=== PATIENT | male | born 1970 | race African-American/Black ===

== ENCOUNTER 2022-05-16 12:51 | Emergency (ER) | payer MEDICAID ==
[2022-05-16] MEDS ORDERED: Alum Hydroxide/Mag Hydroxide 15 ML, Lidocaine 2% 15 ML PO ONE ×2 (13:11)
[2022-05-16 13:41] LABS: ESTIMATED GFR 45 mL/min (>60)
[2022-05-16] MEDS ORDERED: Acetaminophen 500 MG Tab PO ONE (14:07)
[2022-05-16] MEDS ORDERED: Famotidine 20 MG Tab PO ONE (14:08)
[2022-05-16] MEDS ORDERED: NS + KCl 20mEq/L 1,000 ML IV SCH (14:15)
== END 2022-05-16 14:29 | disposition home or self-care (01) ==
LOC: FB.ED 12:51
DX: R10.13 Epigastric pain (principal); E87.6 Hypokalemia; I45.10 Unspecified right bundle-branch block; Z79.01 Long term (current) use of anticoagulants; Z79.899 Other long term (current) drug therapy
CPT/HCPCS: 36415; 80053; 83690; 84484; 85027; 86140; 93005; 99285; A9270

== ENCOUNTER 2022-06-04 14:00 | Emergency (ER) | payer MEDICAID ==
[2022-06-04] MEDS ORDERED: Furosemide 40 MG/4 ML VIAL IVPUSH ONE (14:27)
[2022-06-04] MEDS ORDERED: Metolazone 2.5 MG Tab PO ONE (14:27)
[2022-06-04] MEDS ORDERED: Sodium Chloride 0.9% 10 ML Syringe FLUSH PRN (14:36)
[2022-06-04 14:56] LABS: ESTIMATED GFR 49 mL/min (>60)
== END 2022-06-04 15:30 | disposition home or self-care (01) ==
LOC: FB.ED 14:00
DX: I13.0 Hypertensive heart and chronic kidney disease with heart failure and stage 1 through stage 4 chronic kidney disease, or unspecified chronic kidney disease (principal); I50.9 Heart failure, unspecified; N18.30 Chronic kidney disease, stage 3 unspecified; E78.00 Pure hypercholesterolemia, unspecified; I25.2 Old myocardial infarction; Z79.899 Other long term (current) drug therapy; Z79.01 Long term (current) use of anticoagulants; Z79.82 Long term (current) use of aspirin; Z87.891 Personal history of nicotine dependence
CPT/HCPCS: 80053; 83880; 84484; 85025; 93005; 96374; 99285; A9270; J1940; J3490

== ENCOUNTER 2022-08-17 12:23 | Emergency (ER) | payer MEDICAID ==
[2022-08-17 13:24] LABS: ESTIMATED GFR 49 mL/min (>60)
[2022-08-17 14:37] LABS: CORONAVIRUS COVID-19 NAA NEGATIVE (NEGATIVE)
[2022-08-17] MEDS ORDERED: Diphtheria,Pertussis(Acell),Tetanus Vaccine 0.5 ML Syringe IM ONE (14:57)
[2022-08-17] MEDS ORDERED: Ketorolac 30 MG/ML SDV IVPUSH ONE (15:38)
[2022-08-17] MEDS ORDERED: Ketorolac 30 MG/ML SDV IM ONE (15:46)
== END 2022-08-17 16:10 | disposition home or self-care (01) ==
LOC: FB.ED 12:23
DX: J20.9 Acute bronchitis, unspecified (principal); R09.1 Pleurisy; R79.82 Elevated C-reactive protein (CRP); I48.91 Unspecified atrial fibrillation; E78.00 Pure hypercholesterolemia, unspecified; I13.0 Hypertensive heart and chronic kidney disease with heart failure and stage 1 through stage 4 chronic kidney disease, or unspecified chronic kidney disease; N18.30 Chronic kidney disease, stage 3 unspecified; I50.9 Heart failure, unspecified; Z86.16 Personal history of COVID-19; Z87.891 Personal history of nicotine dependence; Z79.01 Long term (current) use of anticoagulants; Z79.899 Other long term (current) drug therapy; Z20.822 Contact with and (suspected) exposure to COVID-19
CPT/HCPCS: 0240U; 36415; 71046; 80053; 81001; 83735; 83880; 84484; 85025; 86140; 93005; 93010; 96372; 99284; 99285; J1885